=== PATIENT | female | born 1995 | race Caucasian/White ===

== ENCOUNTER 2019-09-26 20:09 | Emergency (ER) | payer OTHER ==
[~2019-09-26] VITALS: Ht 157.5 cm; Wt 86.2 kg
== END 2019-09-26 22:27 | disposition home or self-care (01) ==
LOC: ER 20:09
DX: R51 Headache (principal)

== ENCOUNTER 2021-01-09 23:29 | Emergency (ER) | payer OTHER ==
[~2021-01-09] VITALS: Ht 154.9 cm; Wt 81.6 kg
[2021-01-10] MEDS ORDERED: CLARITIN10 M1 PO (03:18)
[2021-01-10] MEDS ORDERED: TUSNEL LIQUID178 ML PO (03:18)
[2021-01-10] MEDS ORDERED: ZITHROMAX500 MG PO (03:18)
== END 2021-01-10 03:26 | disposition home or self-care (01) ==
LOC: ER 23:29
DX: J00 Acute nasopharyngitis [common cold] (principal); Z11.52 Encounter for screening for COVID-19

== ENCOUNTER 2021-01-18 23:24 | Emergency (ER) | payer OTHER ==
[~2021-01-18] VITALS: Ht 154.9 cm; Wt 84.8 kg
[~2021-01-18 23:24] MED LIST: CLARITIN10 M1 PO; TUSNEL LIQUID178 ML PO; ZITHROMAX500 MG PO
== END 2021-01-19 03:00 | disposition home or self-care (01) ==
LOC: ER 23:24
DX: M54.5 Low back pain (principal)

== ENCOUNTER 2021-05-18 08:25 | Emergency (ER) | payer OTHER ==
[~2021-05-18] VITALS: Ht 157.5 cm; Wt 84.4 kg
[2021-05-18] MEDS ORDERED: PRENA1 TRUE CO1 EACH (08:41)
== END 2021-05-18 16:02 ==
LOC: ER 08:25
DX: J06.9 Acute upper respiratory infection, unspecified (principal); Z03.818 Encounter for observation for suspected exposure to other biological agents ruled out

== ENCOUNTER 2021-05-21 10:19 | Emergency (ER) | payer OTHER ==
[~2021-05-21] VITALS: Ht 157.5 cm; Wt 82.6 kg
[~2021-05-21 10:19] MED LIST changes: +PRENA1 TRUE CO1 EACH
[2021-05-21] MEDS ORDERED: ZOFRAN8 MG PO (11:33)
== END 2021-05-21 16:26 | disposition home or self-care (01) ==
LOC: ER 10:19
DX: U07.1 COVID-19 (principal); Z3A.12 12 weeks gestation of pregnancy

== ENCOUNTER 2021-07-18 20:37 | Outpatient (CLI) | payer OTHER ==
[~2021-07-18 20:37] MED LIST changes: +ZOFRAN8 MG PO
== END 2021-07-19 10:47 | disposition home or self-care (01) ==
LOC: OBS/DEL 20:37
PROVIDERS: ATTEND Obstetrics & Gynecology
DX: O26.892 Other specified pregnancy related conditions, second trimester (principal); R10.2 Pelvic and perineal pain; Z3A.22 22 weeks gestation of pregnancy

== ENCOUNTER 2021-11-03 17:02 | Inpatient (IN) | payer OTHER ==
[~2021-11-03] VITALS: Ht 157.5 cm; Wt 85.7 kg
== END 2021-11-06 13:31 | disposition home or self-care (01) | DRG 807 ==
LOC: OB/GYN 17:02 → LDR 17:02 → OB/GYN 11-04 17:53
PROVIDERS: ADMIT Obstetrics & Gynecology; ATTEND Obstetrics & Gynecology
PROC: 4A1HXCZ Monitoring of Products of Conception, Cardiac Rate, External Approach (ICD-10-PCS; 2021-11-03)
PROC: 10E0XZZ Delivery of Products of Conception, External Approach (ICD-10-PCS; principal; 2021-11-04)
DX: O80 Encounter for full-term uncomplicated delivery (principal); Z37.0 Single live birth; Z3A.37 37 weeks gestation of pregnancy; Z20.822 Contact with and (suspected) exposure to COVID-19

== ENCOUNTER 2022-05-10 10:43 | Emergency (ER) | payer OTHER | END 2022-05-10 11:31 | disposition home or self-care (01) | LOC: ER 10:43 | DX: B34.9 Viral infection, unspecified (principal); M54.2 Cervicalgia; Z20.822 Contact with and (suspected) exposure to COVID-19 ==

== ENCOUNTER 2022-10-03 18:37 | Emergency (ER) | payer OTHER ==
[~2022-10-03] VITALS: Ht 162.6 cm; Wt 85.3 kg
[~2022-10-03 18:37] MED LIST changes: +CEPACOL SORE T1 EAC1 PO; +ZITHROMAX TRI-500 MG PO
[2022-10-03] MEDS ORDERED: PEPCID AC20 MG PO (21:55)
[2022-10-03] MEDS ORDERED: ONDANSETRON ODT8 MG PO (21:55)
== END 2022-10-03 22:35 | disposition home or self-care (01) ==
LOC: ER 18:37
DX: R11.2 Nausea with vomiting, unspecified (principal); Z20.822 Contact with and (suspected) exposure to COVID-19

== ENCOUNTER 2022-11-29 08:03 | Emergency (ER) | payer OTHER ==
[~2022-11-29] VITALS: Ht 154.9 cm; Wt 86.2 kg
[~2022-11-29 08:03] MED LIST changes: +ONDANSETRON ODT8 MG PO; +PEPCID AC20 MG PO
[2022-11-29] MEDS ORDERED: ZITHROMAX500 MG PO (11:39)
[2022-11-29] MEDS ORDERED: FLONASE ALLERG9.9 ML NASAL (11:39)
[2022-11-29] MEDS ORDERED: MUCINEX DM ER1 EAC1 PO (11:39)
== END 2022-11-29 11:45 | disposition home or self-care (01) ==
LOC: ER 08:03
DX: B34.9 Viral infection, unspecified (principal); Z20.822 Contact with and (suspected) exposure to COVID-19

== ENCOUNTER 2023-03-09 18:27 | Emergency (ER) | payer OTHER ==
[~2023-03-09] VITALS: Ht 154.9 cm; Wt 86.2 kg
[~2023-03-09 18:27] MED LIST changes: +FLONASE ALLERG9.9 ML NASAL; +MUCINEX DM ER1 EAC1 PO
[2023-03-09] MEDS ORDERED: PAXLOVID 300-11 EACH PO (20:26)
[2023-03-09] MEDS ORDERED: TUSNEL LIQUID178 ML PO (20:26)
[2023-03-09] MEDS ORDERED: PROAIR RESPICL90 MCG IH (20:26)
== END 2023-03-09 20:37 | disposition home or self-care (01) ==
LOC: ER 18:27
DX: U07.1 COVID-19 (principal)

== ENCOUNTER 2023-09-05 16:17 | Emergency (ER) | payer OTHER ==
[~2023-09-05] VITALS: Ht 157.5 cm; Wt 86.2 kg
[~2023-09-05 16:17] MED LIST changes: +PAXLOVID 300-11 EACH PO; +PROAIR RESPICL90 MCG IH
[2023-09-05] MEDS ORDERED: AMOX-CLAV 875-1 EAC1 PO (20:39)
[2023-09-05] MEDS ORDERED: AYR SALINE50 ML NASAL (20:39)
[2023-09-05] MEDS ORDERED: ZYRTEC10 MG PO (20:39)
[2023-09-05] MEDS ORDERED: FLONASE16 GM NASAL (20:39)
== END 2023-09-05 20:48 | disposition home or self-care (01) ==
LOC: ER 16:17
DX: J32.9 Chronic sinusitis, unspecified (principal)

== ENCOUNTER 2024-01-03 00:25 | Emergency (ER) | payer OTHER ==
[~2024-01-03] VITALS: Ht 154.9 cm; Wt 84.4 kg
[~2024-01-03 00:25] MED LIST changes: +AMOX-CLAV 875-1 EAC1 PO; +AYR SALINE50 ML NASAL; +FLONASE16 GM NASAL; +ZYRTEC10 MG PO
[2024-01-03] MEDS ORDERED: FAMOTIDINE/PF 20 MG/2 ML VIAL IV PUSH STA (01:39)
[2024-01-03] MEDS ORDERED: HYOSCYAMINE SULFATE 0.125 MG TAB.SUBL SL STA (01:39)
[2024-01-03] MEDS ORDERED: PROMETHAZINE HCL 50 MG/ML AMPUL IM STA (01:39)
[2024-01-03] MEDS ORDERED: LACTOBACILLUS ACIDOPHILUS 1 CAP CAP PO STA ×2 (01:40→04:38)
[2024-01-03] MEDS ORDERED: 0.9 % SODIUM CHLORIDE 1,000 ML IV ONE (01:45)
[2024-01-03 02:37] LABS: HEMATOCRIT 42.5 % (36.0-45.00); MEAN CORPUSCULAR HEMOGLOBIN 26.7 pg (27.00-32.0); MEAN CORPUSCULAR HGB CONC 32.9 g/dl (32.0-36.0); PLATELET COUNT 378 K/uL (150-450); RED BLOOD COUNT 5.24 M/uL (4.00-6.00); RED CELL DISTRIBUTION WIDTH 13.9 % (11.5-14.5)
[2024-01-03 02:43] LABS: CALCIUM 9.2 mg/dL (8.5-10.1); CREATININE SERUM 0.62 mg/dL (0.55-1.02); GFR 113.02; POTASSIUM 4.16 mEq/L (3.5-5.1)
[2024-01-03] MEDS ORDERED: ONDANSETRON HCL 2 MG/ML VIAL IV STA (04:38)
[2024-01-03 07:20] LABS: PH,URINE 7.5 (5.0-8.0); URINE APPEARANCE Clear; URINE BILIRRUBIN Negative (NEGATIVE); URINE BLOOD Small; URINE COLOR Yellow; URINE GLUCOSE Negative (NEGATIVE); URINE LEUKOCYTE Trace; URINE NITRATE Negative; URINE PROTEIN Trace (NEGATIVE); URINE UROBILINOGEN 0.2 E.U./dl
[2024-01-03 07:23] LABS: URINE BACTERIA 394.3 uL (0.0-1933); URINE EPITHELIAL CELLS 17.6 uL (0.0-38.8); URINE RBC 96.2 uL (0.0-20.8)
[2024-01-03] MEDS ORDERED: ZOFRAN8 MG PO (09:28)
== END 2024-01-03 09:51 | disposition home or self-care (01) ==
LOC: ER 00:26
PROVIDERS: General Practice
DX: K52.89 Other specified noninfective gastroenteritis and colitis (principal); R11.10 Vomiting, unspecified; R19.7 Diarrhea, unspecified

== ENCOUNTER 2024-10-23 11:44 | Emergency (ER) | payer OTHER ==
[~2024-10-23] VITALS: Ht 154.9 cm; Wt 88.9 kg
[~2024-10-23 11:44] MED LIST changes: +DOLOGEN CAPLET1 EACH PO
[2024-10-23 12:46] VITALS: BP 121/85; O2SAT 100
[2024-10-23] MEDS ORDERED: ACETAMINOPHEN 500 MG GEL..CAP PO ONE ×2 (13:15→13:16)
[2024-10-23 13:39] LABS: HEMATOCRIT 38.1 % (36.0-45.00); HEMOGLOBIN 13.3 g/dL (12.0-15.00); MEAN CELL VOLUME 80.4 fL (80.00-100.00); MEAN CORPUSCULAR HEMOGLOBIN 28.1 pg (27.00-32.0); PLATELET COUNT 360 K/uL (150-450); RED BLOOD COUNT 4.74 M/uL (4.00-6.00); RED CELL DISTRIBUTION WIDTH 13.5 % (11.5-14.5)
[2024-10-23 14:27] LABS: ALBUMIN 4.1 gm/dL (3.4-5.0); BILIRUBIN TOTAL 0.21 mg/dL (0.3-1.2); CALCIUM 9.7 mg/dL (8.5-10.1); CREATININE SERUM 0.59 mg/dL (0.55-1.02); GFR 119.68; GLOBULINA 3.5 G/DL (2.4-3.5); POTASSIUM 4.66 mEq/L (3.5-5.1); TOTAL PROTEIN 7.6 gm/dL (6.4-8.2)
[2024-10-23] MEDS ORDERED: MEDROXYPROGESTE10 MG PO (15:13)
[2024-10-23] MEDS ORDERED: KETOROLAC TROMETHAMINE 60 MG VIAL IM ONE ×2 (15:15→15:16)
== END 2024-10-23 15:31 | disposition home or self-care (01) ==
LOC: ER 11:46
PROVIDERS: General Practice
DX: N93.9 Abnormal uterine and vaginal bleeding, unspecified (principal)

== ENCOUNTER 2024-11-03 13:16 | Emergency (ER) | payer OTHER ==
[~2024-11-03] VITALS: Ht 154.9 cm; Wt 89.8 kg
[~2024-11-03 13:16] MED LIST changes: +MEDROXYPROGESTE10 MG PO
[2024-11-03] MEDS ORDERED: KETOROLAC TROMETHAMINE 60 MG VIAL IM STA (14:01)
[2024-11-03] MEDS ORDERED: KETOROLAC TROMETHAMINE 60 MG VIAL IM ONE (15:41)
== END 2024-11-03 16:13 | disposition home or self-care (01) ==
LOC: ER 13:18
DX: M54.9 Dorsalgia, unspecified (principal); M79.671 Pain in right foot; M25.561 Pain in right knee

== ENCOUNTER 2025-01-10 08:19 | Emergency (ER) | payer OTHER ==
[~2025-01-10] VITALS: Ht 154.9 cm; Wt 88.9 kg
[2025-01-10] MEDS ORDERED: KETOROLAC TROMETHAMINE 60 MG VIAL IM ONE ×2 (09:15→09:49)
== END 2025-01-10 10:49 | disposition home or self-care (01) ==
LOC: ER 08:19
DX: M25.561 Pain in right knee (principal)

== ENCOUNTER 2025-06-18 18:05 | Emergency (ER) | payer OTHER ==
[~2025-06-18] VITALS: Ht 154.9 cm; Wt 88.5 kg
[2025-06-18 19:04] VITALS: BP 108/70; O2SAT 98
[2025-06-18] MEDS ORDERED: KETOROLAC TROMETHAMINE 30 MG VIAL IM STA (19:26)
[2025-06-18] MEDS ORDERED: CEFTRIAXONE SODIUM 1,000 MG VIAL IM STA (19:26)
[2025-06-18] MEDS ORDERED: TRAMADOL HCL 50 MG TABLET PO STA (19:29)
[2025-06-18] MEDS ORDERED: CEFTRIAXONE SODIUM 1,000 MG VIAL ONE (20:15)
[2025-06-18] MEDS ORDERED: KETOROLAC TROMETHAMINE 30 MG VIAL ONE (20:15)
== END 2025-06-18 20:28 | disposition home or self-care (01) ==
LOC: ER 18:05
DX: K05.10 Chronic gingivitis, plaque induced (principal)

== ENCOUNTER 2025-09-12 09:02 | Emergency (ER) | payer OTHER ==
[~2025-09-12] VITALS: Ht 154.9 cm; Wt 88.9 kg
[2025-09-12] MEDS ORDERED: MOTRIN IB200 M1 PO (09:23)
[2025-09-12 10:27] LABS: BASO % 0.4 % (0.1-1.2); EOS # 0.04 (0.04-0.54); EOS % 0.5 % (0.7-7.0); LYMPH # 0.63 (1.18-3.74); LYMPH % 7.9 % (19.3-53.1); MEAN PLATELET VOLUME 10.20 fl (9.4-12.4); MONO # 0.63 (0.24-0.82); MONO % 7.9 % (4.7-12.5); NEUT # 6.60 (1.56-6.13); NEUT % 83.0 % (34.0-71.1); RED CELL DISTRIBUTION WIDTH 12.6 % (11.6-14.4)
[2025-09-12 10:56] LABS: COVID-19 AG NEGATIVE (NEGATIVE)
[2025-09-12] MEDS ORDERED: CETIRIZINE HCL 5 MG/5 ML ML PO STA (11:41)
[2025-09-12] MEDS ORDERED: GUAIFENESIN/DEXTROMETHORPHAN 100MG/10ML BLIST.PACK PO STA (11:41)
[2025-09-12] MEDS ORDERED: MUCINEX DM ER1 EACH PO (11:44)
[2025-09-12] MEDS ORDERED: DEXAMETHASONE4 MG PO (11:44)
[2025-09-12] MEDS ORDERED: SINGULAIR10 MG PO (11:44)
== END 2025-09-12 12:18 | disposition home or self-care (01) ==
LOC: ER 09:03
PROVIDERS: General Practice
DX: J06.9 Acute upper respiratory infection, unspecified (principal); Z20.822 Contact with and (suspected) exposure to COVID-19